=== PATIENT | female | born 1990 | race African-American/Black ===

== ENCOUNTER 2017-01-06 09:03 | Emergency (ER) | payer MEDICAID, OTHER ==
[~2017-01-06] VITALS: Ht 162.6 cm; Wt 108.9 kg
[2017-01-06 09:17] VITALS: BP 127/80
[2017-01-06] MEDS ORDERED: KETOROLAC TROMETH 60MG/2ML VIAL IM ONE (10:00)
== END 2017-01-06 10:23 | disposition home or self-care (01) ==
LOC: ER 09:03
DX: G89.29 Other chronic pain (principal); M54.42 Lumbago with sciatica, left side
CPT/HCPCS: 81002; 96372; 99283; J1885